=== PATIENT | male | born 1975 | race Hispanic/Latino ===

== ENCOUNTER 2019-06-20 08:17 | Inpatient (IN) | payer BC, OTHER ==
[~2019-06-20] VITALS: Ht 180.3 cm; Wt 99.8 kg
[2019-06-20] MEDS ORDERED: SODIUM CHLORIDE 0.9% 1000ML 1,000 ML ONE (08:47)
[2019-06-20] MEDS ORDERED: ONDANSETRON HCL INJ 2MG/ML 2ML 2 MG/ML VIAL ONE (08:54)
[2019-06-20] MEDS ORDERED: PANTOPRAZOLE 40 MG 10ML VIAL IV STA (08:58)
[2019-06-20 09:00] LABS: BASOPHILS % 0.2 % (0.0-1.0); EOSINOPHILS # (AUTO) 0.1 (0.0-0.4); EOSINOPHILS % 0.8 % (0.0-6.0); HEMATOCRIT 41.9 % (38.2-49.6); HEMOGLOBIN 14.1 g/dL (14.0-18.0); LYMPHOCYTES # (AUTO) 1.9 (1.0-3.2); MEAN CORPUSCULAR HEMOGLOBIN 32.3 pg (28-32); MEAN CORPUSCULAR HGB CONC 33.7 g/dL (31-35); MEAN CORPUSCULAR VOLUME 95.9 fL (81-99); MONOCYTES # (AUTO) 0.5 (0.2-0.8); MONOCYTES % 3.1 % (4.4-11.3); NEUTROPHILS # (AUTO) 13.4 (2.1-6.9); NEUTROPHILS % 83.3 % (38.7-80.0); PLATELET COUNT 212 x10e3/uL (140-360); RED BLOOD COUNT 4.37 x10e6/uL (4.3-5.7); RED CELL DISTRIBUTION WIDTH 13.4 % (11.7-14.4)
[2019-06-20 09:30] LABS: INR 1.08; PROTHROMBIN TIME 14.7 seconds (11.9-14.5)
[2019-06-20] MEDS ORDERED: PANTOPRAZOLE 40 MG 10ML VIAL IV NR (09:30)
[2019-06-20 09:39] LABS: ALANINE AMINOTRANSFERASE 40 IU/L (0-55); ALBUMIN/GLOBULIN RATIO 1.2 (0.8-2.0); ALKALINE PHOSPHATASE 53 IU/L (40-150); ANION GAP 10.8 mmol/L (8-16); BLOOD UREA NITROGEN 55 mg/dL (7-26); BUN/CREATININE RATIO 43 (6-25); CARBON DIOXIDE 23 mmol/L (22-29); CHLORIDE 111 mmol/L (98-107); CREATININE, SERUM 1.29 mg/dL (0.72-1.25); EST GLOMERULAR FILTRATION RATE > 60 ML/MIN (60-); GLUCOSE 121 mg/dL (74-118); SODIUM 139 mmol/L (136-145)
[2019-06-20 09:41] LABS: POTASSIUM 5.8 mmol/L (3.5-5.1)
[2019-06-20 10:13] LABS: CREATINE KINASE MB 1.5 ng/mL (0-5.0)
[2019-06-20] MEDS ORDERED: SOD POLYSTYRENE SULFONATE SUSP 15 GM/60 ML BTL PO ONE (10:30)
[2019-06-20] MEDS ORDERED: CALCIUM GLUCONATE 10% INJ 4.65 MEQ in SODIUM CHLORIDE 0.9% 50ML 50 ML IV ONE (10:45)
[2019-06-20] MEDS ORDERED: IOPAMIDOL 370 MG/ML 200 ML INFUS..BTL INJ ONE (10:50)
[2019-06-20] MEDS ORDERED: SODIUM CHLORIDE 0.9% 50ML 50 ML ONE (10:50)
--- NOTE | 2019-06-20 11:19 | Diagnostic Imaging Report ---
EXAMINATION: CHEST SINGLE (PORTABLE) INDICATION: ^n/v, leukocytosis ^[id number] ^1100 COMPARISON: None FINDINGS: AP view TUBES and LINES: None. LUNGS: Lungs are well inflated. Bilateral hilar fullness. Otherwise, no definite focal consolidation. PLEURA: No pleural effusion or pneumothorax. HEART AND MEDIASTINUM: The cardiomediastinal silhouette is unremarkable. BONES AND SOFT TISSUES: No acute osseous lesion. Soft tissues are unremarkable. UPPER ABDOMEN: No free air under the diaphragm. IMPRESSION: Bilateral hilar fullness, could represent adenopathy or underlying/developing pneumonia. Otherwise, no focal consolidation. Signed by: Dr. Pierce Carr MD on 06/20/2019 11:15 AM
--- NOTE | 2019-06-20 11:24 | Diagnostic Imaging Report ---
EXAM: CT Abdomen and Pelvis WITH contrast INDICATION: ^n.v ^[id number] ^1050 COMPARISON: None. TECHNIQUE: Abdomen and pelvis were scanned utilizing a multidetector helical scanner from the lung base to the pubic symphysis after administration of IV contrast. Coronal and sagittal reformations were obtained. Dose modulation, iterative reconstruction, and/or weight based adjustment of the mA/kV was utilized to reduce the radiation dose to as low as reasonably achievable. Routine protocol was performed. Scan was performed when during portal venous phase. IV CONTRAST: 100 mL of Omnipaque 370 ORAL CONTRAST: Water COMPLICATIONS: None RADIATION DOSE: Total DLP: 814.94 mGy*cm Estimated effective dose: (DLP x 0.015 x size factor) mSv CTDIvol has been reviewed. It is below the limits set by the Radiation Protocol Committee (RPC). FINDINGS: LINES and TUBES: None. LOWER THORAX: Unremarkable HEPATOBILIARY: No focal hepatic lesions. No biliary ductal dilation. GALLBLADDER: No radio-opaque stones or sludge. No wall thickening. SPLEEN: No splenomegaly. PANCREAS: No focal masses or ductal dilatation. ADRENALS: No adrenal nodules KIDNEYS/URETERS: Kidneys enhance symmetrically. No hydronephrosis. No cystic or solid mass lesions. No stones. GI TRACT: No abnormal distention, wall thickening, or evidence of bowel obstruction. Appendix is normal. Mild gastric distention with water and ingested material. PELVIC ORGANS/BLADDER: Unremarkable. LYMPH NODES: No lymphadenopathy. VESSELS: Unremarkable. PERITONEUM / RETROPERITONEUM: No free air or fluid. BONES: Unremarkable. SOFT TISSUES: Small fat-containing bilateral inguinal hernia, right greater than left. IMPRESSION: 1. No acute inflammatory process in the abdomen/pelvis. Signed by: Dr. Pierce Carr MD on 06/20/2019 11:21 AM
[2019-06-20 13:35] LABS: ANION GAP 11.1 mmol/L (8-16); BLOOD UREA NITROGEN 56 mg/dL (7-26); BUN/CREATININE RATIO 53 (6-25); CALCIUM 8.3 mg/dL (8.4-10.2); CARBON DIOXIDE 21 mmol/L (22-29); CHLORIDE 111 mmol/L (98-107); CREATININE, SERUM 1.06 mg/dL (0.72-1.25); EST GLOMERULAR FILTRATION RATE > 60 ML/MIN (60-); GLUCOSE 133 mg/dL (74-118); SODIUM 138 mmol/L (136-145)
[2019-06-20 13:37] LABS: POTASSIUM 5.1 mmol/L (3.5-5.1)
[2019-06-20 13:43] LABS: CREATINE KINASE MB 1.7 ng/mL (0-5.0)
[2019-06-20] MEDS ORDERED: SODIUM CHLORIDE 0.9% 1000ML 1,000 ML IV SCH ×3 (16:30→19:15)
[2019-06-20 17:55] VITALS: BP 102/60
--- OUTSIDE RECORDS SUMMARY | 2019-06-20 18:02 | XMS REPORT ---
[facility] Address Unknown Phone Unavailable Care Team Providers Care Office Asst Name Role Phone JARETH FUENTES Unavailable Unavailable Problems This patient has no known problems. Allergies, Adverse Reactions, Alerts This patient has no known allergies or adverse reactions. Medications This patient has no known medications. Results Test Description Test Time Test Comments Text Results Atomic Results Result Comments CT ABDOMEN/PELVIS W 2019-06-20 11:15:00 [place] [address] Patient Name: ANKIT WALTON MR #: [id number] : 1975 Age/Sex: 43/M Req #: [id number] Adm Physician: Ordered by: JARETH FUENTES DO Report #: [id number] Location: ER Room/Bed: Procedure: [id number] CT/CT ABDOMEN/PELVIS W Exam Date: 06/20/19 Exam Time: 1050 REPORT STATUS: Signed EXAM: CT Abdomen and Pelvis WITH contrast INDICA TION: n.v [id number] COMPARISON: None. TECHNIQUE: Abdomen and pelvis were scanned utilizing a multidetector helical scanner from the lung base to the pubic symphysis after administration of IV contrast. Coronal and sagittal reformations were obtained. Dose modulation, iterative reconstruction, and/or weight based adjustment of the mA/kV was utilized to reduce the radiation dose to as low as reasonably achievable. Routine protocol was performed. Scan was performed when during portal venous phase. IV CONTRAST: 100 mL of Omnipaque 370 ORAL CONTRAST: Water COMPLICATIONS: None RADIATION DOSE: Total DLP: 814.94 mGy*cm Estimated effective dose: (DLP x 0.015 x size factor) mSv CTDIvol has been reviewed. It is below the limits set by the Radiation Protocol Committee (RPC). FINDINGS: LINES and TUBES: None. LOWER THORAX: Unremarkable HEPATOBILIARY: No focal hepatic lesions. No biliary ductal dilation. GALLBLADDER: No radio-opaque stones or sludge. No wall thickening. SPLEEN: No splenomegaly. PANCREAS: No focal masses or ductal dilatation. ADRENALS: No adrenal nodules KIDNEYS/URETERS: Kidneys enhance symmetrically. No hydronephrosis. No cystic or solid mass lesions. No stones. GI TRACT: No abnormal distention, wall thickening, or evidence of bowel obstruction. Appendix is normal. Mild gastric distention with water and ingested material. PELVIC ORGANS/BLADDER: Unremarkable. LYMPH NODES: No lymphadenopathy. VESSELS: Unremarkable. PERITONEUM / RETROPERITONEUM: No free air or fluid. BONES: Unremarkable. SOFT TISSUES: Small fat-containing bilateral inguinal hernia, right greater than left. IMPRESSION: 1. No acute inflammatory process in the abdomen/pelvis. Signed by: Dr. Pierce Carr MD on 06/20/2019 11:21 AM Dictated By: PIERCE CARR MD 1121 Transcribed By: KYUNG on 06/20/19 1121 COPY TO: JARETH FUENTES DO CHEST SINGLE (PORTABLE) 2019-06-20 11:14:00 [place] [address] Patient Name: ANKIT WALTON MR #: [id number] : 1975 Age/Sex: 43/M Req #: [id number] Adm Physician: Ordered by: JARETH FUENTES DO Report #: [id number] Location: ER Room/Bed: Procedure: [id number] DX/CHEST SINGLE (PORTABLE) Exam Date: 06/20/19 Exam Time: 1100 REPORT STATUS: Signed EXAMINATION: CHEST SINGLE (PORTABLE) I NDICATION: n/v, leukocytosis [id number] COMPARISON: None FINDINGS: AP view TUBES and LINES: None. LUNGS: Lungs are well inflated. Bilateral hilar fullness. Otherwise, no definite focal consolidation. PLEURA: No pleural effusion or pneumothorax. HEART AND MEDIASTINUM: The cardiomediastinal silhouette is unremarkable. BONES AND SOFT TISSUES: No acute osseous lesion. Soft tissues are unremarkable. UPPER ABDOMEN: No free air under the diaphragm. IMPRESSION: Bilateral hilar fullness, could represent adenopathy or underlying/developing pneumonia. Otherwise, no focal consolidation. Signed by: Dr. Pierce Carr MD on 06/20/2019 11:15 AM Dictated By: PIERCE CARR MD 1115 Transcribed By: KYUNG on 06/20/19 1115 COPY TO: JARETH FUENTES DO
[2019-06-20 18:12] VITALS: BP 147/87
[2019-06-20] MEDS ORDERED: HYDRALAZINE HCL 20 MG/ML VIAL IV PRN (18:15)
[2019-06-20] MEDS ORDERED: CEFTRIAXONE SOD 1 GM/NS 50 ML 50 ML IV SCH (18:15)
[2019-06-20] MEDS ORDERED: GUAIFENESIN 600MG/DEXTROMETHORPHAN 30MG TABSR PO PRN (18:15)
[2019-06-20] MEDS ORDERED: AZITHROMYCIN 500MG/NS 250 ML 250 ML IV SCH ×2 (18:15→19:30)
[2019-06-20] MEDS ORDERED: ONDANSETRON HCL INJ 2MG/ML 2ML 2 MG/ML VIAL IV PRN (18:15)
[2019-06-20] MEDS ORDERED: ACETAMINOPHEN 325 MG TAB PO PRN (18:15)
[2019-06-20] MEDS ORDERED: ACETAMINOPHEN/CODEINE 300MG - 30MG TAB PO PRN (18:15)
[2019-06-20 20:00] VITALS: BP 137/61
--- NOTE | 2019-06-20 20:51 | Consultation ---
DATE OF CONSULTATION: 06/20/2019 Pulmonary Medicine Consult REASON FOR REFERRAL: Abnormal chest radiography. HISTORY OF PRESENT ILLNESS: Mr. Tripathi is a pleasant 43-year-old gentleman with abdominal pain. The patient had acute onset of symptoms. Onset at 6:00 p.m. yesterday. Still has some pressure in the upper quadrant and mid back with palpation. Nausea, vomiting, and diarrhea of about six episodes. The patient denies rhinitis, denies throat pain. Chest x-ray shows bilateral hilar fullness/opacities, small suggestive of possible early pneumonia. The patient furthermore with 16 white count, elevated creatinine of 1.29 initially. He is admitted. Heart rate 132 with blood pressure 85/48 today. PAST MEDICAL HISTORY: No allergies, no asthma, no GERD, no sleep apnea. MEDICATIONS: Medication list per electronic record with no medicines listed so far. ALLERGIES: PENICILLIN. SOCIAL HISTORY: The patient smokes 1/4 pack per day, age [age], active. The patient drinks 18 beers per week. No drugs. 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 He lives with his and children who are 12, 15, and 18 years of age. The patient's family gets out about once a week for shopping. FAMILY HISTORY: Noncontributory to this. REVIEW OF SYSTEMS: GENERAL: No chronic weight changes. OPHTHALMOLOGIC: No floaters. ENT: No nosebleeds. ENDOCRINE: No thyroid disease known. PULMONARY: No hemoptysis. CARDIAC: No MIs. GI: No constipation. : No blood in urine. DERMATOLOGIC: No rash. NEUROLOGIC: No seizures. PSYCHIATRIC: No depression. OBJECTIVE: VITAL SIGNS: Afebrile, vital signs noted, reviewed per the chart record with tachycardia. HEENT: Normocephalic, atraumatic. GENERAL: No acute distress, mildly pale. NECK: Supple. Throat midline. LUNGS: Bilateral air entry, limited breath sounds at bases, but clear. CARDIOVASCULAR: S1 and S2. No murmurs, rubs, or gallops. ABDOMEN: Soft, nontender. EXTREMITIES: No clubbing. No cyanosis. There is trace to no edema. INTEGUMENT: No rash. No purpura. LABORATORY DATA: 16 white count, 42 hematocrit, and 212 platelets. Lymphocyte count 12%, 1900. INR 1.08. Admission potassium 5.8, creatinine 1.29, 65 BUN, and 23 bicarbonate. Glucose 121, calcium 8.0, albumin 3.0, and total protein 5.6. IMPRESSION: 1. Hypotension, treated for severe sepsis. 2. Acute gastroenteritis. 3. Abnormal chest radiography, mild pneumonia versus atelectasis. 4. Critical hyperkalemia 5.8, under evaluation, suggested mild acute kidney injury risk. 5. Mild hypoalbuminemia. 6. Environmental exposure, COVID pandemic state. 7. Hypotension without julia shock. 8. Alcohol abuse. 9. Tobacco use. PLAN: Continue supportive therapy. Some initial fluid. Repeat blood work tomorrow to ensure stability. Ensure potassium levels come normal. COVID-19 test was sent out and is pending. The patient should adhere to droplet/contact precautions. Followup heart rate to ensure appropriate improvement. Check systemic markers of inflammation. Thank you very much, Dr. Ho, for this consult. Please call for questions. Masoud Menezes MD GMArianna/MODL /[id number]
[2019-06-20] MEDS ORDERED: MELATONIN 5 MG TABLET PO PRN (21:00)
[2019-06-21] VITALS (9 sets, daily range): BP systolic 100–120; BP diastolic 46–68
[2019-06-21 05:16] LABS: BASOPHILS % 0.2 % (0.0-1.0); EOSINOPHILS # (AUTO) 0.1 (0.0-0.4); EOSINOPHILS % 0.9 % (0.0-6.0); HEMATOCRIT 29.1 % (38.2-49.6); HEMOGLOBIN 9.6 g/dL (14.0-18.0); LYMPHOCYTES # (AUTO) 2.7 (1.0-3.2); LYMPHOCYTES % 28.2 % (18.0-39.1); MEAN CORPUSCULAR HEMOGLOBIN 31.7 pg (28-32); MONOCYTES # (AUTO) 0.9 (0.2-0.8); MONOCYTES % 9.1 % (4.4-11.3); NEUTROPHILS # (AUTO) 5.9 (2.1-6.9); NEUTROPHILS % 61.1 % (38.7-80.0); PLATELET COUNT 146 x10e3/uL (140-360); RED BLOOD COUNT 3.03 x10e6/uL (4.3-5.7); RED CELL DISTRIBUTION WIDTH 13.6 % (11.7-14.4)
[2019-06-21 05:35] LABS: ALANINE AMINOTRANSFERASE 27 IU/L (0-55); ALBUMIN 2.8 g/dL (3.5-5.0); ALBUMIN/GLOBULIN RATIO 1.3 (0.8-2.0); ALKALINE PHOSPHATASE 39 IU/L (40-150); ANION GAP 8.1 mmol/L (8-16); BLOOD UREA NITROGEN 37 mg/dL (7-26); BUN/CREATININE RATIO 42 (6-25); CALCIUM 7.9 mg/dL (8.4-10.2); CARBON DIOXIDE 26 mmol/L (22-29); CHLORIDE 111 mmol/L (98-107); CREATININE, SERUM 0.89 mg/dL (0.72-1.25); EST GLOMERULAR FILTRATION RATE > 60 ML/MIN (60-); GLUCOSE 104 mg/dL (74-118); POTASSIUM 4.1 mmol/L (3.5-5.1); SODIUM 141 mmol/L (136-145)
[2019-06-21 05:47] LABS: CREATINE KINASE MB 0.7 ng/mL (0-5.0)
[2019-06-21 05:59] LABS: THYROID STIMULATING HORMONE 0.683 uIU/mL (0.350-4.940)
[2019-06-21 07:10] LABS: FREE THYROXINE INDEX 1.6119 (1.4-3.8); THYROID STIMULATING HORMONE 0.735 uIU/mL (0.350-4.940)
[2019-06-21] MEDS ORDERED: FAMOTIDINE 20 MG TAB PO SCH (07:30)
[2019-06-21] MEDS ORDERED: MULTIVITAMINS/MINERALS TAB PO SCH (09:00)
[2019-06-21] MEDS ORDERED: PANTOPRAZOLE SO40 MG PO (12:45)
--- NOTE | 2019-06-21 13:01 | Consultation ---
DATE OF CONSULTATION: REASON FOR CONSULTATION: Fever, chills and pneumonia. HISTORY OF PRESENT ILLNESS: He is very pleasant 43-year-old gentleman, who has sudden onset of nausea, vomiting, diarrhea, six episodes with black stool. He denies any cough or shortness of breath. He came to the emergency room because he felt really bad after this vomiting. He is given IV fluid. He is admitted. It was noted that he has high white count 16, creatinine 1.29. Chest x-ray was suggestive for pneumonia, but the patient has no fever, no chills. PAST MEDICAL HISTORY: Denies. PAST SURGICAL HISTORY: Denies. ALLERGIES: NKA. SOCIAL HISTORY: No smoking, drug abuse or alcohol abuse. FAMILY HISTORY: Unremarkable. REVIEW OF SYSTEMS: At the present time, he is doing quite well. HEENT: Negative. PULMONARY: Negative. CARDIAC: Negative. His review of systems otherwise is negative. LABORATORY DATA: His white count is 9.6, hemoglobin of 9.6. His influenza A and B antigen were negative. PHYSICAL EXAMINATION: GENERAL: He is currently alert, oriented, does not seem in acute distress. VITAL SIGNS: Stable, currently afebrile. HEENT: He is not icteric. NECK: Supple. CHEST: Clear. HEART: S1 and S2. No murmur. ABDOMEN: Soft. Bowel sounds present. No tenderness. EXTREMITIES: No edema. IMPRESSION: Sepsis on admission, resolved, probably gastroenteritis. From Infectious Disease point of view, the patient is doing quite well. All his symptoms that he covered probably viral illness, COVID-19 could not be ruled out, but since he is clinically stable, patient was going to be discharged to home with self isolation for 2 weeks. Discussed with the patient, he needs to pay meticulous attention to taking care of stool, washing hands and clearing for the next six weeks. To wear mask for the next 2 weeks with quarantine for self quarantine, to see him back in three weeks. Followup as outpatient. MD DOLORES Benites/HAMLET /[id number]
[2019-06-21] MEDS ORDERED: ENOXAPARIN SOD INJ 40 MG/0.4 ML SYR SC SCH (17:00)
--- NOTE | 2019-06-22 09:45 | Discharge Summary ---
ADMISSION DIAGNOSES: 1. Sepsis, present on admission with unknown source. 2. Obesity with a BMI of 30.7. DISCHARGE DIAGNOSES: 1. Sepsis, present on admission with unknown source. 2. Obesity with a BMI of 30.7. 3. Rule out flu. HISTORY: None. SURGICAL HISTORY: Left hand surgery and right arm surgery. FAMILY HISTORY: The patient's father had diabetes. SOCIAL HISTORY: The patient admits to smoking about one-third pack of cigarettes per day with occasional alcohol use. HOSPITAL COURSE: A 43-year-old male admits with complaints of vomiting and diarrhea since Friday. He denies fever and sick contacts. He is tolerating p.o. now and diarrhea has resolved. On admission, flu was negative. WBC was 16.02. The patient was started on Zithromax and Rocephin, and the WBC remains normal. The patient is now tolerating diet and no longer having diarrhea. Per ID recommendation, COVID was tested and the patient will discharge home. He was not given a prescription for antibiotics because it was thought to be viral. Per the patient's report, when he was nauseous and vomiting, there was blood in his emesis, so the patient was given a prescription for Protonix. He will discharge home and follow up with primary care in 1 to 2 weeks. He was advised to stick to contact and droplet precaution. The patient understands discharge instructions and agrees to plan. Vital signs are stable. The patient is afebrile. Dictated by Jacquie Angeles NP MD GERALDINE Abernathy/MODL /[id number]
== END 2019-06-21 15:30 | disposition home or self-care (01) | DRG 871 ==
LOC: ER 08:17 → ERHOLD 14:01 → IMCU 18:09 → ICU 20:27 → IMCU 20:48
PROVIDERS: ADMIT Internal Medicine; ATTEND Internal Medicine
DX: A41.89 Other specified sepsis (principal); J18.9 Pneumonia, unspecified organism; E66.01 Morbid (severe) obesity due to excess calories; Z68.30 Body mass index [BMI] 30.0-30.9, adult; E87.5 Hyperkalemia; Z20.828 Contact with and (suspected) exposure to other viral communicable diseases; E88.09 Other disorders of plasma-protein metabolism, not elsewhere classified; F10.10 Alcohol abuse, uncomplicated; F17.210 Nicotine dependence, cigarettes, uncomplicated; A08.4 Viral intestinal infection, unspecified; R65.20 Severe sepsis without septic shock
CPT/HCPCS: 36415; 71045; 74177; 80048; 80053; 82550; 82553; 82728; 83036; 83735; 84436; 84443; 84479; 84484; 85025; 85379; 85610; 86140; 86850; 86900; 87400; 87635; 93005; 99284; J0456; J0610; J0696; J1650; J2405; J7030; Q9967